=== PATIENT | male | born 1935 | race Caucasian/White ===

== ENCOUNTER 2017-06-08 12:04 | Emergency (ER) | payer MEDICARE ==
[~2017-06-08] VITALS: Ht 172.7 cm; Wt 113.4 kg
[~2017-06-08 12:04] MED LIST: CODE BLUE PARTICIPANT 1 EA MISC MC ONE; EPINEPHrine PFS 0.1 MG/ML SYR IVP ONE; SODIUM BICARBONATE 8.4% PFS 50 MEQ/50 ML SYR IVP ONE
[2017-06-08] MEDS ORDERED: NALOXONE 0.4 MG/ML VIAL ONE (12:14)
--- NOTE | 2017-06-08 12:23 | NUR ---
CALLED TO ED FOR FULL ARREST. PT ARRIVED [address] STATON AT BEDSIDE. CPR AND ACLS DRUGS ADMINISTERED. DR STATON PRONOUNCED PATIENT AT 1217.
--- NOTE | 2017-06-08 12:30 | NUR ---
Ronnacyndee KrausCote daughter is point of contact for family [phone]
--- NOTE | 2017-06-08 12:51 | NUR ---
brought in by ems in full arrest with an approx 20min down time prior to ER arrival. compressions continued in ER
--- NOTE | 2017-06-08 12:56 | NUR ---
IO placed by ems in field right superior tib
--- NOTE | 2017-06-08 12:58 | NUR ---
called paunch trimmer [phone]---information given to [facility] person Assistant Shift Supervisor will call back
--- NOTE | 2017-06-08 14:01 | NUR ---
@ 1335hrs technical illustrator deputy violeta barrera case # [id number] released body to [facility] @ 1344hrs [employer] Carmelina Payne cast # [phone] potential tissue donor, they will contact family.
--- NOTE | 2017-06-08 14:05 | NUR ---
per Ronna daughter, pt's pmd Dr.Jay Maldonado [facility] ---no number provided
--- NOTE | 2017-06-08 14:56 | NUR ---
DR. STATON SPOKE TO FAMILY
--- NOTE | 2017-06-08 15:10 | NUR ---
FAMILY GIVEN LIST OF MORTUARYS
--- NOTE | 2017-06-08 15:36 | NUR ---
MARK FROM [facility] CALLED FOR [facility]PERATOR ETA APPROXIMATELY 2 HOURS.
--- NOTE | 2017-06-08 15:39 | NUR ---
[facility] REGARD[facility]IENT
--- NOTE | 2017-06-08 17:24 | NUR ---
PT TAKEN BY [facility]
--- NOTE | 2017-06-08 17:32 | NUR ---
FAMILY LEFT THE FACILITY.
== END 2017-06-08 17:24 ==
LOC: MED 12:04
DX: I46.9 Cardiac arrest, cause unspecified (principal); E03.9 Hypothyroidism, unspecified
CPT/HCPCS: 92950; 99285; J0171; J2310